=== PATIENT | male | born 1980 | race Caucasian/White ===

== ENCOUNTER 2016-07-21 13:54 | Emergency (ER) | payer MEDICAID ==
[2016-07-21 14:13] VITALS: BP 147/98; PULSE 80; RESP 18; TEMP 98; O2SAT 97
--- NOTE | 2016-07-21 14:49 | UCPHY ---
H & P Patient Type: Established Chief Complaint Nursing Narrative: c/o inc. pain with Spondolytits condition- worse pain he has ever had- states he has not taken prednisond or Savella in several days Time Seen by Provider: 07/21/16 14:20 HPI/ROS: HPI CHIEF COMPLAINT: Worsening chronic back pain HISTORY OF PRESENT ILLNESS: This is a very pleasant 35-year-old male significant past medical history for spondylolysis, HLA B27 positive, presents to the urgent care with worsening back pain. He states he lives in his parents basement he is unemployed, he has chronic back pain is followed by Dr. Gomes. Patient states that he has been having increasing back pain and that he has been taking prednisone for the past 3 days however this is not improving. He stopped his Lyrica 3 days ago. He denies trauma. He denies saddle anesthesia, denies midline back pain, denies leg weakness he does have sharp stabbing burning pain down the right posterior leg. It goes to his knee. He denies fever, trauma, chest pain, shortness of breath. States he has been doing this for years however it is acutely worse over the past 3 days. He arrived by private vehicle as mom dropped him off. Patient tells me that he is living in the basement of his parents he crawls up the stairs approximately 3-4 stairs. He crawls on his knees to get up and down. He now has right knee pain. Past Medical History: Spondylitis, chronic back pain Past Surgical History: no recent surgical history Social History: Denies daily use of drugs alcohol tobacco products Family History: Noncontributory ROS REVIEW OF SYSTEMS: A comprehensive 10 point review of systems is otherwise negative aside from elements mentioned in the history of present illness. Exam Constitutional Appears well nontoxic,triage nursing summary reviewed, vital signs reviewed, awake/alert. Eyes normal conjunctivae and sclera, EOMI, PERRLA. HENT normal inspection, atraumatic, moist mucus membranes, no epistaxis, neck supple/ no meningismus, no raccoon eyes. Respiratory clear to auscultation bilaterally, normal breath sounds, no respiratory distress, no wheezing. Cardiovascular rate normal, regular rhythm, no murmur, no edema, distal pulses normal. Gastrointestinal soft, non-tender, no rebound, no guarding, normal bowel sounds, no distension, no pulsatile mass. Genitourinary no CVA tenderness. Musculoskeletal right knee, joint effusion pre patella region, full range of motion but has pain with range of motion, no warmth, no redness, distally neurovascular intact good pulse, good cap refill, back exam: no midline vertebral tenderness, to palpation over the right SI joint, otherwise unremarkable, full range of motion, no calf swelling, no tenderness of extremities, no meningismus, good pulses, neurovascularly intact. Skin pink, warm, & dry, no rash, skin atraumatic. Neurologic awake, alert and oriented x 3, AAOx3, moves all 4 extremities equally, motor intact, sensory intact, CN II-XII intact, normal cerebellar, normal vision, normal speech. Psychiatric normal mood/affect. Heme/Lymph/Immune no lymphadenopathy. Differential Diagnosis: includes but is not limited to in a particular order, acute on chronic back pain, exacerbation of spondylitis, infection, compression fracture, nerve root compression, degenerative Joint Disease, sciatica. Medical Decision Making: Plan for this patient IV establishment, patient be given gentle IV hydration, he received IV Dilaudid for acute pain control, IV Decadron to help with pain control, Toradol anti-inflammatory, basic blood work and closely monitor see if his symptoms improve. I did request that we x-ray his back however he has declined. He states he has had many x-rays and recently had 1 everything was fine. plan is for x-ray right knee. Re-evaluation: ED x-ray right knee: joint effusion present. Image interpreted myself. No fracture. 1630: re-evaluation at this time this patient is feeling much better. Able to ambulate without difficulty. We placed a knee immobilizer, here he has crutches , I do recommend he follows up closely with Orthopedics. He understands return urgent care or emergency room if he has worsening symptoms questions or concerns. Prescription given for Radisson for acute pain control, prednisone 3 day burst 60 mg, understands return to Urgent Care worsening symptoms. Most likely has right knee effusion due to climbing up the stairs on his knee. And compensating for his back pain. No evidence of cauda equina here. Ambulating well good leg strength. No saddle anesthesia. No fever, no midline back pain. Source: Patient - Personal History Current Tetanus Diphtheria and Acellular Pertussis (TDAP): Yes - Medical/Surgical History Hx Asthma: No Hx Chronic Respiratory Disease: No Hx Diabetes: No Hx Cardiac Disease: No Hx Renal Disease: No Hx Cirrhosis: No Hx Alcoholism: No Hx HIV/AIDS: No Hx Splenectomy or Spleen Trauma: No Other PMH: ANKYLOSING SPONDYLITIS. surg-none - Family History Significant Family History: No pertinent family hx - Social History Smoking Status: Never smoked Constitutional: Initial Vital Signs Temperature (C) 36.6 C 07/21/16 14:10 Heart Rate 80 07/21/16 14:10 Respiratory Rate 18 07/21/16 14:10 Blood Pressure 147/98 H 07/21/16 14:10 O2 Sat (%) 97 07/21/16 14:10 O2 Delivery Mode Room Air Allergies/Adverse Reactions: No Known Allergies Allergy (Verified 06/13/15 20:55) Home Medications: Medication Instructions Recorded Golimumab [SIMPONI] 08/11/14 predniSONE 60 mg PO DAILY #22 tab 06/13/15 Hydrocodone/APAP 5/325 [Radisson 1 - 2 tab PO Q4H PRN #10 tab 07/21/16 5/325] SAVELLA 07/21/16 predniSONE 60 mg PO DAILY #9 tab 07/21/16 Medical Decision Making - Diagnostics Imaging: Imaging Impressions Knee X-Ray 07/21/16 15:03 Impression: 1. Moderate effusion in the suprapatellar bursa. 2. No osseous abnormality seen. - Data Points Laboratory Results: Laboratory Results 07/21/16 14:40 07/21/16 14:40 07/21/16 07/21/16 14:40 14:40 WBC 8.22 10^3/uL 10^3/uL (3.80-9.50) RBC 4.75 10^6/uL 10^6/uL (4.40-6.38) Hgb 16.2 g/dL g/dL (13.7-17.5) Hct 45.1 % % (40.0-51.0) MCV 94.9 fL fL (81.5-99.8) MCH 34.1 pg pg (27.9-34.1) MCHC 35.9 g/dL g/dL (32.4-36.7) RDW 12.6 % % (11.5-15.2) Plt Count 242 10^3/uL 10^3/uL (150-400) MPV 10.0 fL fL (8.7-11.7) Neut % (Auto) 62.4 % % (39.3-74.2) Lymph % (Auto) 24.3 % % (15.0-45.0) [place] % (Auto) 10.0 % % (4.5-13.0) Eos % (Auto) 2.6 % % (0.6-7.6) Baso % (Auto) 0.5 % % (0.3-1.7) Nucleat RBC Rel Count 0.0 % % (0.0-0.2) Absolute Neuts (auto) 5.13 10^3/uL 10^3/uL (1.70-6.50) Absolute Lymphs (auto) 2.00 10^3/uL 10^3/uL (1.00-3.00) Absolute Monos (auto) 0.82 10^3/uL H 10^3/uL (0.30-0.80) Absolute Eos (auto) 0.21 10^3/uL 10^3/uL (0.03-0.40) Absolute Basos (auto) 0.04 10^3/uL 10^3/uL (0.02-0.10) Absolute Nucleated RBC 0.00 10^3/uL 10^3/uL (0-0.01) Immature Gran % 0.2 % % (0.0-1.1) Immature Gran # 0.02 10^3/uL 10^3/uL (0.00-0.10) Sodium 141 mEq/L mEq/L (134-144) Potassium 4.4 mEq/L mEq/L (3.5-5.2) Chloride 100 mEq/L mEq/L (97-110) Carbon Dioxide 23 mEq/l mEq/l (22-31) Anion Gap 18 mEq/L H mEq/L (8-16) BUN 11 mg/dL mg/dL (7-23) Creatinine 0.7 mg/dL mg/dL (0.7-1.3) Estimated GFR > 60 Glucose 91 mg/dL mg/dL (70-100) Calcium 9.8 mg/dL mg/dL (8.5-10.4) Medications Given: Discontinued Medications Dexamethasone (Decadron Injection) 10 mg IVP EDNOW ONE Stop: 07/21/16 14:57 Last Admin: 07/21/16 15:18 Dose: 10 mg Hydromorphone HCl (Dilaudid) 1 mg IVP EDNOW ONE Stop: 07/21/16 14:57 Last Admin: 07/21/16 15:10 Dose: 1 mg Sodium Chloride (Ns) 1,000 mls @ 0 mls/hr IV ONCE ONE PRN Reason: Wide Open Stop: 07/21/16 14:57 Last Admin: 07/21/16 15:19 Dose: 1,000 mls Ketorolac Tromethamine (Toradol) 30 mg IVP EDNOW ONE Stop: 07/21/16 14:57 Last Admin: 07/21/16 15:15 Dose: 30 mg Ondansetron HCl (Zofran) 4 mg IVP EDNOW ONE Stop: 07/21/16 14:57 Last Admin: 07/21/16 15:10 Dose: 4 mg Departure - Departure Disposition: Home, Routine, Self-Care Clinical Impression: Knee effusion, right Back pain Qualifiers: Back pain location: low back pain Chronicity: acute Back pain laterality: right Sciatica presence: with sciatica Sciatica laterality: sciatica of right side Qualified Code(s): M54.41 - Lumbago with sciatica, right side Condition: Good Instructions: Swollen Knee Joint (ED), Osteoarthritis (ED), Low Back Strain (ED ) Additional Instructions: 1. Ice your knee. 2. use crutches to help ambulate stay off your knee 3. Return to the urgent care or emergency room if you have worsening symptoms questions or concerns. 4. Please follow up with your pain management doctor. 5.Please follow up with Orthopedics. 6.Stay in your knee immobilizer to help with comfort and stability. You may take it off to sleep. Referrals: NONE *PRIMARY CARE P,. [Primary Care Provider] - As per Instructions Prescriptions: Hydrocodone/APAP 5/325 [Radisson 5/325] 1 - 2 tab PO Q4H PRN #10 tab PRN Reason: Pain, Moderate predniSONE 60 mg PO DAILY #9 tab - PQRS PQRS Measurement: n/a
[2016-07-21] MEDS ORDERED: ONDANSETRON 4 MG/2 ML VIAL IVP ONE (14:56)
[2016-07-21] MEDS ORDERED: NS 1,000 ML IV ONE (14:56)
[2016-07-21] MEDS ORDERED: DEXAMETHASONE 10 MG/ML VIAL IVP ONE (14:56)
[2016-07-21] MEDS ORDERED: KETOROLAC 30 MG/1 ML SDV IVP ONE (14:56)
[2016-07-21] MEDS ORDERED: HYDROmorphONE/DILAUDID 1 MG/ML SYR IVP ONE (14:56)
[2016-07-21 15:02] LABS: % IMMATURE GRANULYOCYTES 0.2 % (0.0-1.1); ABSOLUTE IMMATURE GRANULOCYTES 0.02 10^3/uL (0.00-0.10); ADD DIFF? NO; ADD MORPH? NO; ADD SCAN? NO; ATYPICAL LYMPHOCYTE FLAG 0 (0-99); FRAGMENT RBC FLAG 0 (0-99); HEMATOCRIT 45.1 % (40.0-51.0); HEMOGLOBIN 16.2 g/dL (13.7-17.5); LEFT SHIFT FLG 0 (0-99); LIPEMIA HEMOLYSIS FLAG 90 (0-99); MEAN CELL HEMOGLOBIN 34.1 pg (27.9-34.1); MEAN CELL HEMOGLOBIN CONCENTR. 35.9 g/dL (32.4-36.7); MEAN CELL VOLUME 94.9 fL (81.5-99.8); PLATELET CLUMPS FLAG 0 (0-99); PLATELET COUNT 242 10^3/uL (150-400); RED BLOOD CELL COUNT 4.75 10^6/uL (4.40-6.38); RED CELL DISTRIBUTION WIDTH 12.6 % (11.5-15.2)
[2016-07-21 15:07] LABS: ANION GAP 18 mEq/L (8-16); CALCIUM 9.8 mg/dL (8.5-10.4); CARBON DIOXIDE 23 mEq/l (22-31); CHLORIDE 100 mEq/L (97-110); CREATININE 0.7 mg/dL (0.7-1.3); GLOMERULAR FILTRATION RATE > 60; GLUCOSE 91 mg/dL (70-100); POTASSIUM 4.4 mEq/L (3.5-5.2); SODIUM 141 mEq/L (134-144)
== END 2016-07-21 16:15 | disposition home or self-care (01) ==
LOC: CED 13:54
DX: M54.41 Lumbago with sciatica, right side (principal); M25.461 Effusion, right knee; M47.9 Spondylosis, unspecified
CPT/HCPCS: 73562; 96361; 96374; 96375; 99211; L3670; 80048-PO; 85025-PO; 99214-PO; G0463-PO; J1170; J1885; J2405

== ENCOUNTER → 2018-06-16 | Outpatient (CLI) | payer OTHER | LOC: CIMAGING 16:25 ==

== ENCOUNTER → 2018-06-22 | Outpatient (CLI) | payer OTHER | LOC: CIMAGING 17:33 | PROVIDERS: ATTEND Internal Medicine Rheumatology | DX: M45.0 Ankylosing spondylitis of multiple sites in spine (principal) | CPT/HCPCS: 72040-PO; 72100-PO; 72202-PO ==

== ENCOUNTER 2018-09-02 22:24 | Emergency (ER) | payer OTHER ==
[2018-09-02] MEDS ORDERED: CYCLOBENZAPRINE 10 MG TAB PO ONE (23:09)
[2018-09-02] MEDS ORDERED: oxyCODONE IR 5 MG TAB PO ONE (23:09)
--- NOTE | 2018-09-02 23:40 | EDPHY ---
H & P Stated Complaint: Painful, swollen R foot, due to Ankylosing Spondylitis Time Seen by Provider: 09/02/18 22:32 HPI/ROS: CHIEF COMPLAINT: Right leg and foot pain. HISTORY OF PRESENT ILLNESS: This is an unfortunate 2-year-old male whose had 15 years of ankylosing spondylitis. He reports be HLA antigen positive. When I reviewed some lumbar sacral spine films from this past May they were unremarkable. His sed rate and C reactive protein as well as white count were normal. There is some faint changes seen on his the sacroiliac joints that could be construed as early changes seen in ankylosing spondylitis. He is here for leg pain. This been going on for 5 days. He reports to be at his wits end. The pain itself starts frequently in the buttock area and upper thigh. However this time it is below the knee extending from the knee anteriorly all the way down to the foot. He notes the foot appears to be swollen to him compared to his normal as it is different than the left. He denies any recent injury or puncture wounds. He does not have a history of tinea pedis. To him, this is his usual flare of his ankylosing spondylitis. He denies any trauma. There has been no unusual bedrest prior to the incident of this week. He has been in bed though for the last 3 days as he has difficulty getting around the 1st place using a wheeled walker. He does not have a history of hypercoagulable syndrome or prior history of DVT PE or surgery or hormone use. We had a chance to talk about his pain management in the past. Some 10 years ago during the early phase of his diagnosis he was taking Oxy Contin as well as 30 Percocet a day. He recalls having a very big difficult time coming off these medications abruptly in the setting of narcotic withdrawal. He does report that he was taking Percocet as well as Lyrica and a serotonin reuptake inhibitor (Savella), as well as shot of golimumab. However, he did not like taking the Percocet and the other medications really helping them so he stopped them all. Did have an opportunity to check the [place] drug monitoring program and he has not had any oxycodone since April. Prior to that to the course of last year he was getting approximately 50 oxycodone/Tylenol monthly. He was also on Lyrica. P: Worse when he attempts to the walk and his balance is bad. Q: Intense, throbbing pain R: From the knees down, though does not radiate up to the thigh S: Severe T: Progressive since 5 days ago REVIEW OF SYSTEMS: Constitutional: No fever, no chills. Eyes: No discharge No diplopia ENT: No sore throat. Cardiovascular: No chest pain, no palpitations. Respiratory: No cough, shortness of breath, or wheezing. Gastrointestinal: No Nausea, vomiting, abdominal pain or diarrhea Genitourinary: No hematuria or frequency. Musculoskeletal: He is having his usual back pain. The left leg is asymptomatic as well as the arms Skin: No rashes. Neurological: No headache. A 10 system review of systems was performed and is negative except for the noted findings in the HPI. Source: Patient - Personal History Current Tetanus/Diphtheria Vaccine: Unsure Current Tetanus Diphtheria and Acellular Pertussis (TDAP): Unsure - Medical/Surgical History Hx Asthma: No Hx Chronic Respiratory Disease: No Hx Diabetes: No Hx Cardiac Disease: No Hx Renal Disease: No Hx Cirrhosis: No Hx Alcoholism: No Hx HIV/AIDS: No Hx Splenectomy or Spleen Trauma: No Other PMH: ANKYLOSING SPONDYLITIS, marijuana user. HLA B27 positive. - Social History Smoking Status: Never smoked Alcohol Use: None Drug Use: None, Marijuana - Physical Exam Exam: General Appearance: Alert, appears to be in distress, as his voices at times tremulous, he is bracing his upper body with his hands via clenched fist into the base of the stretcher. States he is at his wits and. Afebrile. Normal phonation. No respiratory distress. Eyes: Pupils equal and round no pallor or injection. No icterus ENT, Mouth: Mucous membranes moderately dry Pharynx without erythema or exudate. TM Clear. Neck: No adenopathy. Supple. No JVD. Trachea in midline. Respiratory: There are no retractions, lungs are clear to auscultation. Cardiovascular: Regular rate and rhythm, no longer tachycardic. Abdomen: Soft and nontender, no masses, bowel sounds normal. Femoral pulses equal. Neurological: Ox3. No motor weakness. Sensation intact. Gait nl. Skin: Warm and dry, no rashes. No signs of tinea pedis. Musculoskeletal: No joint swelling. Extremities: No track lozano There is some mild soft tissue swelling over the dorsum of the right foot along with a pink discoloration. This pink discoloration does not have a demarcation as would be seen in cellulitis. It does matt as well. It is mostly on the dorsum overlying the 3rd 4th and 5th metatarsals extending to the tarsals but there is also a patch medially overlying the tarsal there. Pulses are intact with respect to dorsalis pedis, posterior tibialis, popliteal and femoral. While he is thin in the legs there is no apparent atrophy. There is no tenderness to the posterior musculature up though he complains of pain going up and down the anterior compartments. The compartments some cells are soft, though he experiences discomfort everywhere I touch him when below the knee. The femoral triangles benign without any soft tissue swelling or tenderness. There is no skin changes to the thigh or groin. Psychiatric: Normal affect. Patient is oriented X 3. There is no agitation Constitutional: Initial Vital Signs Temperature (C) 37.1 C 09/02/18 22:30 Heart Rate 121 H 09/02/18 22:30 Respiratory Rate 18 09/02/18 22:30 Blood Pressure 150/115 H 09/02/18 22:30 O2 Sat (%) 95 09/02/18 22:30 O2 Delivery Mode Room Air Allergies/Adverse Reactions: No Known Allergies Allergy (Verified 09/02/18 22:33) Home Medications: Medication Instructions Recorded Prednisolone 09/02/18 Acetaminophen [Acetaminophen 8 1,300 mg PO Q8 #60 tablet.sa 09/03/18 Hour] Cephalexin [Keflex (*)] 500 mg PO Q6H #28 cap 09/03/18 Cyclobenzaprine [Flexeril 10 MG 20 mg PO HS PRN #10 tab 09/03/18 (*)] Oxycodone HCl 1 - 2 tab PO Q6H PRN #15 capsule 09/03/18 predniSONE [Prednisone] 30 mg PO BID #30 tablet 09/03/18 Medical Decision Making ED Course/Re-evaluation: Patient seemed to be quite uncomfortable. His heart rate calm down during the history as we were able to connect. I status that he is no longer taking any pain medications of a chronic basis. We talked about potential slippery slope for taking pain medications Giuliana with the underlying diagnosis. He is aware. Thus, he was given doses of the following meds for his comfort: Flexeril 20 mg Oxycodone 10 mg I did not want given Tylenol as I want to be certain he did not have a fever through his visit here, which he was not exhibiting at the time of triage. Laboratory studies revealed: WBC 9.9 Potassium 3.2 The rest of electrolytes were normal C reactive protein 70.2-elevated Sed rate 24, elevated. Duplex scan of the right lower leg was performed per Radiology. The report came in as no DVT in the right lower extremity. Of note, the femoral and popliteal veins are compressible with augmentation as well as respiratory variation. Thereafter, when I met with the patient he noted that it was considerably better , no longer throbbing in view himself as being able to sleep. We discussed what happens when he has these spondylitic arthritis flares. He finds that prednisone does not help however in that context he means does not help that night. On 1 occasion had an infusion but it certainly was not the 1 g infusion is we seen for Solu-Medrol for multiple sclerosis. Thereby will go ahead and get him started on prednisone tonight. I doubt for dealing with an infection but he will be on Keflex 500 four times daily as well. I expect in a slowly resolved in the next 3-4 days. I have also asked him to do the following : Take his temperature whenever he takes the Tylenol arthritis formula Follow up with his PCP in the next 5 days, prednisone taper per that office. Differential Diagnosis: The differential diagnosis includes but is not limited to: Fracture, Sprain, Strain, Dislocation, Nerve injury, Contusion, ankylosing spondylitis flare, cellulitis, abscess. - Data Points Laboratory Results: Laboratory Results 09/02/18 23:20 09/02/18 09/02/18 09/02/18 23:26 23:20 23:20 Hct 43.5 % % (40.0-51.0) ESR 24 MM/HR H MM/HR (0-15) POC Sodium 135 mEq/L mEq/L (135-145) POC Potassium 3.2 mEq/L L mEq/L (3.3-5.0) POC Chloride 97.0 mEq/L mEq/L (97-110) POC Total CO2 26 mEq/L mEq/L (22-31) POC BUN 9 mg/dL mg/dL (7-23) POC Creatinine 0.9 mg/dL mg/dL (0.7-1.3) POC Glucose 107 mg/dL H mg/dL (70-100) POC Calcium 9.5 mg/dL mg/dL (8.5-10.4) C-Reactive Protein 70.2 mg/L H mg/L (<10.0) Medications Given: Discontinued Medications Cephalexin (Keflex 500 Mg Prepack#4) 1 btl TAKEHOME EDNOW ONE PRN Reason: Protocol Stop: 09/03/18 01:29 Last Admin: 09/03/18 01:39 Dose: 1 btl Cyclobenzaprine HCl (Flexeril) 20 mg PO EDNOW ONE Stop: 09/02/18 23:10 Last Admin: 09/02/18 23:34 Dose: 20 mg Oxycodone HCl (Oxycodone Ir) 10 mg PO EDNOW ONE Stop: 09/02/18 23:10 Last Admin: 09/02/18 23:34 Dose: 10 mg Oxycodone/Acetaminophen (Percocet 5/325mg Prepack#4) 1 btl TAKEHOME EDNOW ONE Stop: 09/03/18 01:29 Last Admin: 09/03/18 01:39 Dose: 1 btl Prednisone (Prednisone) 60 mg PO EDNOW ONE Stop: 09/03/18 01:31 Last Admin: 09/03/18 01:38 Dose: 60 mg Point of Care Test Results: CBC CBC Collection Date 09/02/18 CBC Collection Time 22:23 WBC 9.90 RBC 4.76 HGB 16.3 HCT 44.8 PLT 163 Neut # 6.84 Neut 69.1 LYMPH # 1.77 LYMPH 17.9 MCV 94.1 Chemistry 09/02/18 23:26 POC Sodium 135 mEq/L mEq/L (135-145) POC Potassium 3.2 mEq/L L mEq/L (3.3-5.0) POC Chloride 97.0 mEq/L mEq/L (97-110) POC Total CO2 26 mEq/L mEq/L (22-31) POC BUN 9 mg/dL mg/dL (7-23) POC Creatinine 0.9 mg/dL mg/dL (0.7-1.3) POC Glucose 107 mg/dL H mg/dL (70-100) POC Calcium 9.5 mg/dL mg/dL (8.5-10.4) Urine Dip Collection Date 09/03/18 Collection Time 01:49 Specific [place] (1.002-1.030) 1.005 PH (5.0-7.5) 6.0 Leukocytes (Negative) Negative Nitrites (Negative) Negative Protein (Negative) Negative Glucose (Negative) Negative Urobilnogen (0.2-1.0 EU) 0.2 Bilirubin (Negative) Negative Blood (Negative) Negative Departure - Departure Disposition: Home, Routine, Self-Care Clinical Impression: Arthritis of foot Condition: Good Instructions: Acetaminophen (By mouth), Arthritis (ED), Ankylosing Spondylitis (ED) Additional Instructions: For the Inflammation: Prednisone 30 mg twice a day for 5 days only. Taper as per your doctor For the pain: Percocet for tonight, oxycodone beginning tomorrow. Tylenol arthritis formula. Sure to take her temperature before he do so. For the possible infection: Keflex 500 mg 4 times daily. It is a good idea while on an antibiotic to take yogurt with active cultures to maintain bowel health. To healthy sleep at night: Flexeril 10 mg, take 2 at bedtime. As needed. Referrals: Patient,NotPresent [Primary Care Provider] - As per Instructions Prescriptions: Acetaminophen [Acetaminophen 8 Hour] 1,300 mg PO Q8 #60 tablet.sa Cephalexin [Keflex (*)] 500 mg PO Q6H #28 cap Cyclobenzaprine [Flexeril 10 MG (*)] 20 mg PO HS PRN #10 tab PRN Reason: Sleep/Insomnia Oxycodone HCl 1 - 2 tab PO Q6H PRN #15 capsule PRN Reason: pain predniSONE [Prednisone] 30 mg PO BID #30 tablet
[2018-09-03] MEDS ORDERED: OXYCODONE/APAP 5/325MG PREPACK#4 BTL TAKEHOME ONE (01:28)
[2018-09-03] MEDS ORDERED: CEPHALEXIN 500MG PREPACK#4 BTL TAKEHOME ONE (01:28)
[2018-09-03] MEDS ORDERED: predniSONE 20 MG TAB PO ONE (01:30)
[2018-09-03 01:52] VITALS: BP 152/100
== END 2018-09-03 01:51 | disposition home or self-care (01) ==
LOC: CED 22:24
DX: M19.071 Primary osteoarthritis, right ankle and foot (principal); M45.9 Ankylosing spondylitis of unspecified sites in spine
CPT/HCPCS: 93971; 99284; J7512; 80048-ER; 85025-QW-ER